=== PATIENT | male | born 1940 | race Caucasian/White ===

== ENCOUNTER → 2018-09-12 09:54 | Day surgery (SDC) | payer MEDICARE, BC, OTHER ==
[~2018-09-12 09:54] MED LIST: Acetaminophen TAB* 325 MG PO PRN; Heparin(*) 1000 UNIT/ML 10 ML VIAL CATH LAB IV ONE; Iohexol 350 (CONTRAST) 200 ML MDV IV ONE; Lidocaine 1% INJ* 10 MG/ML 30 ML SDV ONE; Midazolam* 1 MG/ML 5 ML VIAL (5 MG) ONE; NS 0.9% 1000 ML** 1,000 ML IV SCH; VERAPAMIL 2.5 MG/ML 2 ML VIAL ** 5 mg/2 ml ONE; fentaNYL* 50 MCG/ML 2 ML VIAL (100 MCG VIAL) ONE; nitroGLYCERIN DRIP* 25,000 MCG/250 ML BTL ONE
[2018-09-12 16:06] VITALS: BP 114/57
--- NOTE | 2018-09-13 03:14 | CATH ---
CC: Dr. Tim Miguel; Dr. Gab Patel * CARDIAC CATHETERIZATION REPORT: DATE OF SERVICE: 09/12/18 - [facility] CATH PROCEDURE: Cardiac catheterization including coronary angiography. INDICATION: Aortic stenosis, history of coronary artery disease. The patient is a 78-year-old gentleman with a history of coronary artery disease , history of stenting to his LAD in 2014, who has been having progressive shortness of breath. Echocardiogram showed severe aortic stenosis. Cardiac catheterization was recommended for evaluation. DESCRIPTION OF PROCEDURE: The patient was brought to the cardiac catheterization lab in a fasting state. Informed consent had been obtained prior to the procedure. All labs were reviewed. The patient was placed supine on the catheterization table. His radial area on his right side was prepped and draped in the usual fashion. 1% lidocaine was used for local anesthesia. The radial artery was entered via Seldinger technique and a guidewire was placed. Over the guidewire, a 6-Ecuadorean hydrophilic sheath was placed. Through the sheath, an infusion of verapamil, nitroglycerin, and heparin was infused. The patient underwent coronary angiography using a 6-Ecuadorean AR1 catheter to engage the right coronary artery. Multiple attempts were made to engage the left main artery, but because of severe tortuosity in the innominate artery and in the aortic root, it was difficult to selectively engage the left main artery. At that time, the decision was to switch to the femoral approach. His right femoral artery was prepped and draped in the usual fashion. 1% lidocaine was used for local anesthesia. The femoral artery was entered via Seldinger technique and a guidewire was placed. Over the guidewire, a 6-Ecuadorean sheath and introducer was placed. The patient underwent coronary angiography using a 6 -Ecuadorean JL4 catheter. At the end of the procedure, all sheaths and catheters were removed from the radial area, an angiogram of the femoral artery demonstrated a normal position, and a Mynx closure device was deployed. The patient tolerated the procedure well with no complications. A total of or 95 cc of Omnipaque dye was used. A total of 13 minutes of fluoro time was used. FINDINGS: Central aortic blood pressure 116/64 with a mean of 87. Right coronary artery: The RCA was a large dominant vessel, gave off the PDA and 2 posterolateral branches. There was mild calcification of the proximal vessel. There was no significant stenosis of the remainder of the right coronary artery. Left main artery: The left main was normal in size that bifurcated into the LAD and circumflex. There was no evidence of stenosis. Left anterior descending artery: The LAD was normal in size. It gave off 2 diagonal vessels. The very proximal portion of the left anterior descending had heavy calcification. There was an eccentric plaque of about 25% or 30% that was heavily calcified in the very proximal portion of the LAD. There was a stent in the mid portion of his LAD which showed minimal restenosis. The remainder of the LAD and diagonal vessels were without disease. Left circumflex artery: The circumflex artery was normal in size. It gave off 2 obtuse marginal branches. There was no evidence of stenosis. IMPRESSION: 1. Heavy calcification of the proximal left anterior descending with an eccentric 30% heavy calcified stenosis. 2. Stent to the left anterior descending is open and patent. 3. No significant disease in the left anterior descending, left circumflex, and the right coronary artery. 4. Mynx closure device to the right femoral artery. RECOMMENDATION: The patient will undergo evaluation for aortic valve replacement. [id number] #: [id number] HERNANDEZ
== END | disposition home or self-care (01) ==
LOC: CHICATH 09:54
PROVIDERS: ATTEND Specialist
DX: I35.0 Nonrheumatic aortic (valve) stenosis (principal); R07.9 Chest pain, unspecified; I25.10 Atherosclerotic heart disease of native coronary artery without angina pectoris; I25.84 Coronary atherosclerosis due to calcified coronary lesion; R06.02 Shortness of breath; Z95.5 Presence of coronary angioplasty implant and graft; I10 Essential (primary) hypertension; E11.9 Type 2 diabetes mellitus without complications; Z79.84 Long term (current) use of oral hypoglycemic drugs; K21.9 Gastro-esophageal reflux disease without esophagitis; Z87.891 Personal history of nicotine dependence
CPT/HCPCS: 93454; 99156; 99157; C1760; C1769; C1887; J1644; J2250; J3010

== ENCOUNTER 2019-02-09 07:43 | Observation (INO) | payer MEDICARE, BC, OTHER ==
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
[2019-02-09 08:19] LABS: ABS Basophils 0.1 10^3/ul (0-0.2); ABS Eosinophils 0.1 10^3/ul (0-0.6); ABS Lymphocytes 1.7 10^3/ul (1.0-4.8); ABS Monocytes 1.1 10^3/ul (0-0.8); ABS Neutrophils 5.8 10^3/ul (1.5-7.7); Eosinophil % 1.1 %; Hematocrit 39 % (42-52); Hemoglobin 12.6 g/dL (14.0-18.0); Lymphocyte % 19.1 %; Mean Corpuscular HGB Conc 33 g/dL (31-36); Mean Corpuscular Hemoglobin 24 pg (27-31); Mean Corpuscular Volume 75 fL (80-94); Mean Platelet Volume 7.8 fL (7.4-10.4); Platelet Count 171 10^3/uL (150-450); Red Blood Count 5.16 10^6 /uL (4.18-5.48); Red Cell Distribution Width 20 % (10-15); White Blood Count 8.7 10^3/uL (3.5-10.8)
[2019-02-09 08:22] LABS: INR 2.73 (0.82-1.09)
[2019-02-09] MEDS ORDERED: Aspirin 81 mg CHEW TAB* 81 MG TAB.CHEW PO ONE (08:25)
[2019-02-09] MEDS ORDERED: Nitroglycerin TAB 0.4 MG* 0.4 MG TAB SL ONE (08:26)
[2019-02-09] MEDS ORDERED: Nitroglycerin TAB 0.4 MG* 0.4 MG TAB SL PRN ×2 (08:31→11:03)
[2019-02-09 08:37] LABS: Albumin 4.1 g/dL (3.2-5.2); Albumin/Globulin Ratio 1.5 (1-3); BUN/Creatinine Ratio 10.8 (8-20); Calcium 8.9 mg/dL (8.6-10.3); EGFR African American 77.9 (>60); EGFR Non-African American 64.4 (>60); Globulin 2.8 g/dL (2-4); Total Bilirubin 0.8 mg/dL (0.2-1.0); Total Protein 6.9 g/dL (6.4-8.9); Troponin I 0.01 ng/mL (<0.04)
[2019-02-09] MEDS ORDERED: Senna TAB 8.6 mg* TAB PO PRN (10:49)
[2019-02-09] MEDS ORDERED: Acetaminophen TAB* 325 MG PO PRN (10:49)
[2019-02-09] MEDS ORDERED: Ondansetron INJ* 2 MG/ML VIAL IV PRN (10:49)
[2019-02-09] MEDS ORDERED: Al Hydrox/Mg Hydrox/Simet LIQ* 30 ML UDC PO PRN (10:49)
[2019-02-09] MEDS ORDERED: Docusate CAP* 100 MG PO PRN (10:55)
[2019-02-09] MEDS ORDERED: Enoxaparin(*) 40 MG/0.4 ML SYR SUBCUT SCH (11:00)
[2019-02-09] MEDS ORDERED: Ferrous Sulfate TAB* 325 MG PO SCH (11:00)
[2019-02-09] MEDS ORDERED: HYDROcodone/ACETAMIN 5-325 MG* 1 TAB PO PRN (11:03)
[2019-02-09] MEDS: glipiZIDE TAB* 5 MG PO SCH ×2 (13:45→17:22)
[2019-02-09] MEDS ORDERED: Dextrose 50% Syringe 50 ML* 25 GM/50 ML SYRINGE IV PUSH PRN (15:05)
[2019-02-09] MEDS ORDERED: Warfarin TAB(*) 6 MG PO SCH (17:00)
[2019-02-09] MEDS: Insulin LISPRO* 1 UNITS UNIT SUBCUT SCH ×2 (17:22→20:24)
--- NOTE | 2019-02-09 18:13 | HP ---
CC: Dr. Baljeet Cervantes* ADMISSION HISTORY AND PHYSICAL: DATE OF ADMISSION: 02/09/19 PROVIDER: NIK Rodriguez PRIMARY CARE PHYSICIAN: Dr. Baljeet Cervantes. ATTENDING PHYSICIAN WHILE IN THE HOSPITAL: Dr. Rhoda Gloria* (dictated by NIK Rodriguez). CHIEF COMPLAINT: Chest pain. HISTORY OF PRESENT ILLNESS: Bartolo Dawn is a 78-year-old white male with past medical history significant for biologic aortic valve replacement; coronary artery disease, status post PCI; atrial fibrillation; iron deficiency anemia; type 2 diabetes; diastolic CHF, who presented to emergency department complaining of chest pain. The patient has been completing cardiac rehab for the last several weeks. Yesterday, he went to cardiac rehab and had good exercise including arm bike. Several hours after he finished rehab, he was feeling well until he started having right-sided chest pain, which he initially thought it was musculoskeletal due to the exercise arm bike he performed. Later in the evening yesterday, his right sided chest pain began to radiate to his central chest. He felt the pain was 3/10 and felt like he "had been kicked in the chest several hours ago." The patient then went to bed, when he woke up this morning he was still having right sided and central chest pain but now the pain has travelled down his right arm and was in his arm, upper back as well. The patient had no associated shortness of breath or palpitations. The patient has not been coughing; he did notice a cough once this morning with the need to clear his throat, which is now resolved. He has not been feeling fevers or chills. He denies abdominal pain, nausea, vomiting, headache or visual changes. He has been intermittently constipated for several weeks and at this point, he still has some issues with constipation at times. At the time of my evaluation, he feels his chest pain has resolved. Given his significant cardiac history, the hospitalists were asked to evaluate the patient for admission. PAST MEDICAL HISTORY: 1. Atrial fibrillation, which has been persistent, status post aortic valve replacement. 2. Iron deficiency anemia. 3. Hypertension. 4. Claudication. 5. Coronary artery disease, status post stent to LAD. 6. Diabetes mellitus type 2. 7. GERD. 8. Glaucoma of the left eye. 9. Diastolic CHF grade 1 10. Nephrolithiasis 11. History of gastric ulcer. PAST SURGICAL HISTORY: 1. Biologic aortic valve replacement in September 2018 2. Multiple left eye surgeries. 3. History of renal stents placed, which have since been moved. HOME MEDICATIONS: 1. Ferrous sulfate 325 mg p.o. every other day. 2. Coumadin 6 mg every day of the week except Wednesday; 3 mg on Mondays. 3. Diltiazem 240 mg p.o. daily. 4. Glipizide 5 mg p.o. t.i.d. 5. Sitagliptin 50 mg p.o. b.i.d. 6. Simvastatin 20 mg p.o. at bedtime. 7. Omeprazole 20 mg p.o. daily. 8. Nitroglycerin 0.4 mg sublingual q.5 minutes p.r.n. angina. 9. Multivitamin 1 tab p.o. daily. 10. Metoprolol succinate 25 mg p.o. daily. 11. Melatonin 10 mg p.o. at bedtime. 12. Hydrocodone/acetaminophen 5 mg/325 mg 1 tab p.o. q.6 hours p.r.n. moderate pain. 13. Evening [place] oil 500 mg p.o. daily. 14. Enalapril 5 mg p.o. daily. 15. Docusate 100 mg p.o. daily p.r.n. constipation. 16. Cannabidiol extract 2 drops p.o. q.p.m. 17. Aspirin 81 mg p.o. daily. 18. Amoxicillin 2000 mg p.o. once p.r.n. dental work. ALLERGIES: Unknown unknown reaction to MORPHINE, GI upset to NSAIDs. FAMILY HISTORY: Father at age 70 due to complications related to CHF. Mother at age 59 due to lung cancer. SOCIAL HISTORY: The patient lives in [place] with his . He is a retired teacher. He quit smoking in 1994 and smokes for approximately 25 years at about a pack per day. The patient drinks 2 beers per month and denies illicit drug use. He would like his , Melanie Dawn, to be his surrogate medical decision maker should he need one. Her phone number is [phone]. REVIEW OF SYSTEMS: An 11-point review of systems was completed and all pertinent positives and negatives are above in the HPI and all other systems are negative. PHYSICAL EXAMINATION GENERAL: Elderly white male, lying upright in hospital bed, appearing comfortable, in no acute distress with at bedside. HEENT: Head: Normocephalic, atraumatic. Eyes: PERRL. Sclerae anicteric. ENT: Mucous membranes moist. NECK: Supple without JVD. LUNGS: Lungs are clear to auscultation throughout CARDIO: Irregularly irregular rhythm consistent with atrial fibrillation. No murmurs, rubs, or gallops appreciated. Reproducible chest pain with palpation in the second and third intercostal space in the right side at the sternal border. ABDOMEN: Soft, nontender, nondistended without hepatosplenomegaly. EXTREMITIES: No clubbing, cyanosis or edema. NEUROLOGIC: The patient is alert and oriented x3. No focal deficits. Able to follow commands and move all extremities. SKIN: There is a bullous with 1 cm diameter on the right wade. DIAGNOSTIC STUDIES/LAB DATA: White blood cell count 8.7, hemoglobin 12.6, hematocrit 39, platelet count 171. Sodium 139, potassium 4, chloride 106, carbon dioxide 28, anion gap 5, BUN 12, creatinine 1.11, glucose 154. INR 2.73. LFTs are unremarkable. BNP is 233. Troponin 0.01 x2 measurements. EKG: Atrial fibrillation, rate is 98 beats per minute, axis shift to the left, no ST depressions or elevations. There is some T-wave flattening isolated to lead III which is consistent with previous EKG. Chest x-ray on 02/09/19, radiologist's impression: Reticulonodular opacification, predominant along the lung bases and right middle lung zone. This is concerning for infiltrative process. Mild interstitial pulmonary edema is likely. Per my read, I am only suspicious of pulmonary edema, they do not have concern for infiltrate at this time. ASSESSMENT AND PLAN: Bartolo Dawn is a 78-year-old while male with past medical history significant for coronary disease, status post stent to LAD; claudication; hypertension; atrial fibrillation, and biologic aortic valve replacement, who presents to the emergency department complaining of chest pain. The patient will be admitted OBV for. 1. Chest pain. Given the patient's significant cardiac history, I will order a stress test. Troponins have been negative thus far and EKGs have been without changes and we will follow this to a third troponin, which will not be repeated afterwards if is also negative. It is likely a musculoskeletal pain as the patient's chest pain is reproducible on exam and the patient has been having significant amount of exercise and cardiac rehab. The patient will be admitted to telemetry bed and monitored. I will check a TSH level as well. 2. Abnormal chest x-ray. Radiologist expressed concern for infiltrative process and I do not suspect infection at this time. The patient has no leukocytosis, no clinical signs of pneumonia, and his lungs are clear. The patient has been afebrile. No intervention at this time 3. History of coronary artery disease. The patient received total of 325 mg of aspirin today. We will continue his home aspirin, IDA inhibitor, metoprolol , p.r.n. nitroglycerin and simvastatin 4. Atrial fibrillation. The patient is rate controlled at this time. I will continue his metoprolol, Coumadin and diltiazem. He will be on telemetry. His INR is therapeutic at this time and I will repeat INR tomorrow. 5. Diabetes. I will continue the patient's home oral diabetes medications, sliding scale lispro has been ordered as well as fingerstick 60 a.c. and h.s. Carbohydrate consistent diet. 6. Iron deficiency anemia. We will continue the patient's iron supplement every other day as he takes at home. 7. FEN. Heart healthy and carbohydrate consistent diet. Electrolytes are within normal limits. 8. Code status. The patient is full code. 9. DVT prophylaxis. The patient is therapeutic on Coumadin and I will continue this. TIME SPENT: Approximately 45 minutes was spent on this admission, approximately half of the time was spent at bedtime. This case has been reviewed by my attending, Rhoda Gloria and she agrees with plan of care. NIK RODRIGUEZ [id number]/[facility] #: [id number] MTDD
[2019-02-09] MEDS ORDERED: SIMVASTATIN 20 MG PO SCH (21:00)
[2019-02-09] MEDS ORDERED: Melatonin 3 MG TAB PO SCH (21:00)
[2019-02-09] MEDS: CMC: SitaGLIPtin (NF) 25 MG TAB PO SCH (21:25)
[2019-02-10 06:59] LABS: ABS Basophils 0.1 10^3/ul (0-0.2); ABS Eosinophils 0.2 10^3/ul (0-0.6); ABS Lymphocytes 2.6 10^3/ul (1.0-4.8); Eosinophil % 2.2 %; Hematocrit 38 % (42-52); Hemoglobin 12.6 g/dL (14.0-18.0); Lymphocyte % 33.6 %; Mean Corpuscular HGB Conc 33 g/dL (31-36); Mean Corpuscular Hemoglobin 24 pg (27-31); Mean Corpuscular Volume 75 fL (80-94); Mean Platelet Volume 8.3 fL (7.4-10.4); Nucleated Red Blood Cells % 0.1; Platelet Count 160 10^3/uL (150-450); Red Blood Count 5.14 10^6 /uL (4.18-5.48); Red Cell Distribution Width 20 % (10-15); White Blood Count 7.8 10^3/uL (3.5-10.8)
[2019-02-10 07:06] LABS: INR 2.78 (0.82-1.09)
[2019-02-10 07:19] LABS: EGFR African American 87.9 (>60); EGFR Non-African American 72.6 (>60); Potassium 4.1 mmol/L (3.5-5.0)
[2019-02-10 07:36] LABS: TSH (Thyroid Stimulating Horm) 0.9 mcIU/mL (0.34-5.60)
--- NOTE | 2019-02-10 08:07 | PN ---
Subjective - Subjective Reason for Note: Discharge Note History: DISCHARGE SUMMARY: I obtained a history from the patient and from NIK Montana's admitting history and physical. He had acute chest pain - this was after using his arms for exercise. He had no associated symptoms - diaphoresis, nausea, palpitations , pre-syncope. The pain has gone. He has had a normal cardiac NM stress test. He is feeling well this morning. He has no chest pain, dyspnea, palpitations. He has had no cough, sputum, fever or chills. He doesn't think he has a respiratory infection. Active Problems: Active Problems Chest pain (Acute) R07.9 Blindness of one eye (Chronic) H54.40 Coronary artery disease (Chronic) I25.10 Diabetes mellitus type 2 (Chronic) E11.9 Essential hypertension (Chronic) I10 Glaucoma (Chronic) H40.9 Hypercholesterolemia (Chronic) E78.0 S/P AVR (aortic valve replacement) (Chronic) Z95.2 Stented coronary artery (Chronic) Z95.5 Current Medications: Current Medications Acetaminophen (Tylenol Tab*) 650 mg PO Q4H PRN PRN Reason: MILD PAIN or TEMP > 100.4 Hydrocodone Bitart/Acetaminophen (Dunbar 5-325 Tab*) 1 tab PO Q6HR PRN PRN Reason: PAIN - MODERATE Al Hydrox/Mg Hydrox/Simethicone (Maalox Plus*) 30 ml PO Q6H PRN PRN Reason: INDIGESTION Aspirin (Aspirin Ec Tab*) 81 mg PO DAILY [facility] Dextrose (D50w Syringe 50 Ml*) 12.5 gm IV PUSH .FOR FS < 60 - SS PRN PRN Reason: FS < 60 Diltiazem HCl (Cardizem Cd Cap*) 240 mg PO DAILY [facility] Docusate Sodium (Colace Cap*) 100 mg PO DAILY PRN PRN Reason: CONSTIPATION Enalapril Maleate (Vasotec Tab*) 5 mg PO DAILY [facility] Ferrous Sulfate (Ferrous Sulfate Tab*) 325 mg PO EVERY OTHER DAY [facility] Last Admin: 02/09/19 13:58 Dose: 325 mg Glipizide (Glucotrol Tab*) 5 mg PO TID WITH MEALS [facility] Last Admin: 02/09/19 17:22 Dose: 5 mg Insulin Human Lispro (Humalog*) 0 units SUBCUT ACHS [facility]; Protocol Last Admin: 02/09/19 20:24 Dose: 2 unit Melatonin (Melatonin) 9 mg PO BEDTIME [facility] Last Admin: 02/09/19 20:25 Dose: 9 mg Metoprolol Succinate (Toprol Xl Tab*) 25 mg PO DAILY [facility] Multivitamins/Minerals (Theragran/Minerals Tab*) 1 tab PO DAILY [facility] Nitroglycerin (Nitroglycerin Tab 0.4 Mg*) 0.4 mg SL Q5M PRN PRN Reason: PAIN - CHEST Ondansetron HCl (Zofran Inj*) 4 mg IV Q4H PRN PRN Reason: NAUSEA/VOMITING Pantoprazole Sodium (Protonix Tab*) 40 mg PO DAILY [facility] Pharmacy Profile Note (Coumadin Daily Reminder*) 0 note FOLLOW UP 1700 [facility] Last Admin: 02/09/19 17:22 Dose: 1 note Senna (Senokot 8.6 Mg Tab*) 1 tab PO BID PRN PRN Reason: CONSTIPATION Simvastatin (Zocor(Nf)) 20 mg PO BEDTIME [facility] Last Admin: 02/09/19 21:25 Dose: 20 mg Sitagliptin Phosphate (Januvia (Nf)) 50 mg PO BID [facility] Last Admin: 02/09/19 21:25 Dose: 50 mg Warfarin Sodium (Coumadin Tab(*)) 3 mg PO Mo@1700 [facility]; Protocol Warfarin Sodium (Coumadin Tab(*)) 6 mg PO SuTuWeThFrSa@1700 [facility] Last Admin: 02/09/19 17:22 Dose: 6 mg Home Medications: Home Medications Medication Instructions Recorded Confirmed Type Metoprolol Succinate XL TAB* 25 mg PO DAILY 04/24/15 02/09/19 History [Toprol XL TAB*] Simvastatin TAB(NF) [Zocor 20 MG 20 mg PO BEDTIME 04/24/15 02/09/19 History (NF)] Amoxicillin PO (*) [Amoxicillin 2,000 mg PO ONCE PRN 07/17/15 02/09/19 History 500 MG CAP*] Aspirin EC TAB* [Ecotrin EC Low 81 mg PO DAILY 07/17/15 02/09/19 History Dose 81 MG*] Docusate CAP* [Colace Cap*] 100 mg PO DAILY PRN 07/17/15 02/09/19 History Evening [place] Oil [Evening 500 mg PO DAILY 07/17/15 02/09/19 History [place] Oil 500 mg] Melatonin 10 mg PO BEDTIME 07/17/15 02/09/19 History Multivitamins/Minerals TAB* 1 tab PO DAILY 07/17/15 02/09/19 History [Theragran/minerals TAB*] Omeprazole CAP (NF) [Prilosec CAP* 20 mg PO DAILY 07/17/15 02/09/19 History 20 MG] glipiZIDE TAB* [Glucotrol TAB*] 5 mg PO TID 07/17/15 02/09/19 History Nitroglycerin TAB 0.4 MG* 0.4 mg SL Q5M PRN 09/09/18 02/09/19 History Sitagliptin (NF) [Januvia (NF)] 50 mg PO BID 09/09/18 02/09/19 History Cannabidiol (Cbd) Extract 2 drop PO QPM 09/12/18 02/09/19 History [Epidiolex] Enalapril TAB* [Vasotec TAB*] 5 mg PO DAILY 09/12/18 02/09/19 History Ferrous Sulfate TAB* 325 mg PO EVERY OTHER DAY 02/09/19 02/09/19 History Hydrocodone-Acetamin 5-325 mg 1 tab PO Q6HR PRN 02/09/19 02/09/19 History Warfarin Sodium 3 mg PO DAILY 02/09/19 02/09/19 History dilTIAZem HCl [Cartia Xt] 240 mg PO DAILY 02/09/19 02/09/19 History Allergies: Allergies Allergy/AdvReac Type Severity Reaction Status Date / Time morphine Allergy Unknown Verified 02/09/19 07:54 Reaction Details NSAIDS (Non-Steroidal Allergy GI Upset Verified 02/09/19 07:54 Anti-Inflamma Objective - Vital Signs Vital Signs: Vital Signs 02/09/19 02/09/19 02/09/19 08:06 08:15 08:28 Temperature Pulse Rate 90 92 92 Respiratory 19 23 27 Rate Blood Pressure 142/73 142/80 (mmHg) O2 Sat by Pulse 97 97 95 Oximetry 02/09/19 02/09/19 02/09/19 08:58 09:00 09:28 Temperature Pulse Rate 87 84 85 Respiratory 23 24 21 Rate Blood Pressure 126/70 127/70 (mmHg) O2 Sat by Pulse 94 93 96 Oximetry 02/09/19 02/09/19 02/09/19 09:58 10:00 10:28 Temperature Pulse Rate 73 83 90 Respiratory 15 15 30 Rate Blood Pressure 125/66 139/76 (mmHg) O2 Sat by Pulse 96 96 96 Oximetry 02/09/19 02/09/19 02/09/19 10:52 10:53 10:59 Temperature Pulse Rate 90 80 83 Respiratory 31 28 15 Rate Blood Pressure 150/79 132/75 126/81 (mmHg) O2 Sat by Pulse 95 96 96 Oximetry 02/09/19 02/09/19 02/09/19 11:00 12:04 12:47 Temperature 98.2 F 98.0 F Pulse Rate 84 77 84 Respiratory 24 16 16 Rate Blood Pressure 135/61 139/76 (mmHg) O2 Sat by Pulse 95 97 98 Oximetry 02/09/19 02/09/19 02/09/19 15:15 19:10 19:38 Temperature 97.7 F 97.9 F Pulse Rate 79 112 Respiratory 14 18 18 Rate Blood Pressure 126/57 116/52 (mmHg) O2 Sat by Pulse 95 95 Oximetry 02/09/19 02/10/19 23:53 03:09 Temperature 98.3 F 99.1 F Pulse Rate 84 41 Respiratory 18 18 Rate Blood Pressure 136/71 135/56 (mmHg) O2 Sat by Pulse 96 97 Oximetry - Intake and Output Intake and Output: Intake & Output 02/07/19 02/08/19 02/09/19 02/10/19 11:59 11:59 11:59 11:59 Intake Total 290 Balance 290 Weight 195 lb 197 lb 6.4 oz Intake: IV Fluids 50 Oral 240 ADLs: Meal Record Start: 02/09/19 12: 04 Freq: DAILY@0900,1400,1800 Status: Active Protocol: Created 02/09/19 12:04 System (Rec: 02/09/19 12:04 System [email or web address]) Document 02/09/19 18:00 [id number] (Rec: 02/09/19 18:12 [id number]) Intake and Output Start: 02/09/19 07: 53 Freq: Status: Active Protocol: Created 02/09/19 07:53 System (Rec: 02/09/19 07:53 System [id number]) Intake and Output Start: 02/09/19 12: 04 Freq: DAILY@0600,1400,2200 Status: Active Protocol: Created 02/09/19 12:04 System (Rec: 02/09/19 12:04 System [id number]) Document 02/09/19 22:00 [id number] (Rec: 02/09/19 22:11 [id number] [email or web address]) Document 02/10/19 06:00 [id number] (Rec: 02/10/19 06:08 [id number]) - Physical Exam General Physical Exam Comment: Warm and well perfused, he is looking well General: No Cyanosis, No Anemia, No Jaundice, No Clubbing Lungs and Chest: Yes: Chest Expansion Full, Chest Expansion Symetrica, Percussion Note Resonant, Vessicular Breath Sounds. No: Crackles, Wheezes Heart Rate and Rhythm: Irregular Additional Cardiovascular: Yes: Normal Heart Sounds. No: Heart Murmur, Pedal Edema Abdominal Exam: Yes: Soft, Bowel Sounds Present. No: Distention, Abdominal Tenderness Results - Results Lab Results: Laboratory Results - last 24 hr 02/09/19 02/09/19 02/09/19 08:08 08:08 08:08 WBC 8.7 RBC 5.16 Hgb 12.6 L Hct 39 L MCV 75 L MCH 24 L MCHC 33 RDW 20 H Plt Count 171 MPV 7.8 Neut % (Auto) 66.9 Lymph % (Auto) 19.1 [place] % (Auto) 12.1 Eos % (Auto) 1.1 Baso % (Auto) 0.8 Absolute Neuts (auto) 5.8 Absolute Lymphs (auto) 1.7 Absolute Monos (auto) 1.1 H Absolute Eos (auto) 0.1 Absolute Basos (auto) 0.1 Absolute Nucleated RBC 0.0 Nucleated RBC % 0.0 INR (Anticoag Therapy) 2.73 H APTT Sodium 139 Potassium 4.0 Chloride 106 Carbon Dioxide 28 Anion Gap 5 BUN 12 Creatinine 1.11 Est GFR ( Amer) 77.9 Est GFR (Non-Af Amer) 64.4 BUN/Creatinine Ratio 10.8 Glucose 154 H POC Glucose (mg/dL) Calcium 8.9 Total Bilirubin 0.80 AST 12 L ALT 13 Alkaline Phosphatase 90 Troponin I 0.01 B-Natriuretic Peptide Total Protein 6.9 Albumin 4.1 Globulin 2.8 Albumin/Globulin Ratio 1.5 TSH 02/09/19 02/09/19 02/09/19 08:08 08:08 10:54 WBC RBC Hgb Hct MCV MCH MCHC RDW Plt Count MPV Neut % (Auto) Lymph % (Auto) [place] % (Auto) Eos % (Auto) Baso % (Auto) Absolute Neuts (auto) Absolute Lymphs (auto) Absolute Monos (auto) Absolute Eos (auto) Absolute Basos (auto) Absolute Nucleated RBC Nucleated RBC % INR (Anticoag Therapy) APTT 58.8 H Sodium Potassium Chloride Carbon Dioxide Anion Gap BUN Creatinine Est GFR ( Amer) Est GFR (Non-Af Amer) BUN/Creatinine Ratio Glucose POC Glucose (mg/dL) Calcium Total Bilirubin AST ALT Alkaline Phosphatase Troponin I 0.01 B-Natriuretic Peptide 233 H Total Protein Albumin Globulin Albumin/Globulin Ratio [facility] 02/09/19 02/09/19 02/09/19 15:27 16:26 19:32 WBC RBC Hgb Hct MCV MCH MCHC RDW Plt Count MPV Neut % (Auto) Lymph % (Auto) [place] % (Auto) Eos % (Auto) Baso % (Auto) Absolute Neuts (auto) Absolute Lymphs (auto) Absolute Monos (auto) Absolute Eos (auto) Absolute Basos (auto) Absolute Nucleated RBC Nucleated RBC % INR (Anticoag Therapy) APTT Sodium Potassium Chloride Carbon Dioxide Anion Gap BUN Creatinine Est GFR ( Amer) Est GFR (Non-Af Amer) BUN/Creatinine Ratio Glucose POC Glucose (mg/dL) 134 H 181 H Calcium Total Bilirubin AST ALT Alkaline Phosphatase Troponin I 0.01 B-Natriuretic Peptide Total Protein Albumin Globulin Albumin/Globulin Ratio [facility] 02/10/19 02/10/19 02/10/19 06:00 06:00 06:00 WBC 7.8 RBC 5.14 Hgb 12.6 L Hct 38 L MCV 75 L MCH 24 L MCHC 33 RDW 20 H Plt Count 160 MPV 8.3 Neut % (Auto) 51.1 Lymph % (Auto) 33.6 [place] % (Auto) 12.4 Eos % (Auto) 2.2 Baso % (Auto) 0.7 Absolute Neuts (auto) 4.0 Absolute Lymphs (auto) 2.6 Absolute Monos (auto) 1.0 H Absolute Eos (auto) 0.2 Absolute Basos (auto) 0.1 Absolute Nucleated RBC 0.0 Nucleated RBC % 0.1 INR (Anticoag Therapy) 2.78 H APTT Sodium 139 Potassium 4.1 Chloride 107 Carbon Dioxide 24 Anion Gap 8 BUN 13 Creatinine 1.00 Est GFR ( Amer) 87.9 Est GFR (Non-Af Amer) 72.6 BUN/Creatinine Ratio 13.0 Glucose 107 H POC Glucose (mg/dL) Calcium 9.0 Total Bilirubin AST ALT Alkaline Phosphatase Troponin I B-Natriuretic Peptide Total Protein Albumin Globulin Albumin/Globulin Ratio TSH 0.90 Radiology Results: Patient Name: ABBY HICKMAN Medical Record#: [id number] Ordering Physician: Mauricio Bernard MD Acct.#: [id number] : 1940 Age: 78 Sex: M Location: EMERGENCY DEPARTMENT Exam Date: 02/09/19754 ADM Status: REG ER Order Information: CHEST AP OR PORT Accession Number: [id number] CPT: 11460 INDICATION: Chest pain COMPARISON: December 31, [address] TECHNIQUE: A portable view of the chest was obtained. FINDINGS: Overlying support devices obscure the [id number]. Reticulonodular opacifications predominantly at the lung bases and right middle lung zone. Ramo B lines are present. There is no pleural effusion. The enlarged cardiomediastinal silhouette is grossly unchanged status post midline sternotomy. The upper abdominal contents are normal. Osseous structures are unremarkable. IMPRESSION: 1. Reticulonodular opacification predominates along the lung bases and right middle lung zone. This is concerning for infiltrative process. 2. Mild interstitial pulmonary edema is likely. <Electronically signed by Marshall Tejada MD in [place]> 02/09/19848 Dictated By: Marshall Tejada MD Dictated Date/Time: 02/09/19848 Transcribed Date/Time: 02/09/19842 Copy to: EKG Report: 85 atrial fibrillation QTc 484 QRS axis -33. Q waves inferior leads and poor R- wave progress. No acute ST-T changes Other Results/Reports: Patient Name: ABBY HICKMAN Medical Record#: [id number] Ordering Physician: NIK Gruber Acct.#: [id number] : 1940 Age: 78 Sex: M Location: [address] [place] [address] MEDICAL/TELEMETRY Exam Date: 02/09/19 1048 ADM Status: ADM Gonzalo Order Information: NUCLEAR CARDIAC STRESS TEST Accession Number: [id number] CPT: 40204 Indication: Chest pain, coronary artery disease. Myocardial perfusion scan was performed utilizing 1 day protocol. Rest myocardial perfusion was performed after intravenous injection of 10.2 mCi of technetium 99m tetrofosmin. Treadmill stress study was performed and 25.2 mCi of technetium 99 and tetrofosmin was injected intravenously. The maximum heart rate achieved was 101% of the maximum predicted value. There is homogeneous distribution of the radiotracer throughout the left ventricle. There is a small focal area of photopenia in the anterior wall close to the apex. This appears to partially reverse on the rest images and may represent a small amount of reversible change. Ejection fraction at stress is 60%. Evaluation of wall motion demonstrates no focal wall motion abnormality. IMPRESSION: There is suggestion of a small area of reversible change involving the anterior septal wall close to the apex. ASSESSMENT: Low risk Based on imaging criteria from ACC/AHA 2002 Guideline Update for the Management of Patients With Chronic Stable Angina Table 23. Noninvasive Risk Stratification. Reference. <Electronically signed by Jyoti Lao MD in [place]> 02/09/19 1424 Dictated By: Jyoti Lao MD Dictated Date/Time: 02/09/19 1424 Transcribed Date/Time: 02/09/19 1415 Copy to: CC:Baljeet Cervantes MD; Rhoda Gloria MD; NIK Rodriguez Imaging - [facility] Imaging - [facility] Imaging - [facility] [address] This report is only to be considered final once signed by the Provider(s) as displayed in the "<Electronically Signed by >" field (s). Absence of a signature indicates the report is in a draft status and still needs to be finalized. In the event this document was created by someone other than the signing Provider, the individual initiating the document will be listed in the "Entered by:" or "Dictated by:" chen. 1 of 2 Assessment - Problem List Assessment: Patient Problems Chest pain (Acute) Blindness of one eye (Chronic) Coronary artery disease (Chronic) Diabetes mellitus type 2 (Chronic) Essential hypertension (Chronic) Glaucoma (Chronic) Hypercholesterolemia (Chronic) S/P AVR (aortic valve replacement) (Chronic) Stented coronary artery (Chronic) Plan: Chest pain (Acute) He has a low risk of cardiac ischemia from the NM test. Despite the CXR he has no symptoms or signs suggestive of a chest infection. He has no symptoms of CHF. I think this pain was musculo-skeletal. I will add a CRP to ensure there is no inflammation from an infection - but his % neutrophils are normal. Secondary diagnoses: Blindness of one eye (Chronic) Coronary artery disease (Chronic) Diabetes mellitus type 2 (Chronic) Essential hypertension (Chronic) Glaucoma (Chronic) Hypercholesterolemia (Chronic) S/P AVR (aortic valve replacement) (Chronic) Stented coronary artery (Chronic) I have suggested he holds off the upper body exercises. I have warned him of the symptoms of heart failure and pneumonia. He will follow at my office for a transition of care visit after the weekend ( today Wednesday). I discussed the above with the patient. Condition at discharge: good Disposition: Home
[2019-02-10] MEDS: CMC: SitaGLIPtin (NF) 25 MG TAB PO SCH (08:53)
[2019-02-10] MEDS: glipiZIDE TAB* 5 MG PO SCH (08:53)
[2019-02-10] MEDS: Insulin LISPRO* 1 UNITS UNIT SUBCUT SCH (08:58)
[2019-02-10] MEDS ORDERED: Metoprolol Succinate XL TAB* 25 MG PO SCH (09:00)
[2019-02-10] MEDS ORDERED: Aspirin EC TAB* 81 MG TAB.EC PO SCH (09:00)
[2019-02-10] MEDS ORDERED: Enalapril TAB* 5 MG PO SCH (09:00)
[2019-02-10] MEDS ORDERED: Multivitamins/Minerals TAB PO SCH (09:00)
[2019-02-10] MEDS ORDERED: Pantoprazole TAB * 40 MG TAB PO SCH (09:00)
[2019-02-10] MEDS ORDERED: Diltiazem CD CAP* 240 MG PO SCH (09:00)
[2019-02-10 09:23] VITALS: BP 117/57
[2019-02-13] MEDS ORDERED: Warfarin TAB(*) 3 MG PO SCH (17:00)
== END 2019-02-10 10:36 | disposition home or self-care (01) ==
LOC: ED 07:43 → MEDTELE 10:49
PROVIDERS: ADMIT Internal Medicine; ATTEND Internal Medicine
DX: R07.9 Chest pain, unspecified (principal); I48.91 Unspecified atrial fibrillation; I50.30 Unspecified diastolic (congestive) heart failure; Z95.4 Presence of other heart-valve replacement; I25.2 Old myocardial infarction; H54.40 Blindness, one eye, unspecified eye; I25.10 Atherosclerotic heart disease of native coronary artery without angina pectoris; E11.9 Type 2 diabetes mellitus without complications; I10 Essential (primary) hypertension; H40.9 Unspecified glaucoma; E78.00 Pure hypercholesterolemia, unspecified; Z95.5 Presence of coronary angioplasty implant and graft; D50.9 Iron deficiency anemia, unspecified; K21.9 Gastro-esophageal reflux disease without esophagitis; Z79.899 Other long term (current) drug therapy; Z79.82 Long term (current) use of aspirin; Z87.891 Personal history of nicotine dependence; Z79.01 Long term (current) use of anticoagulants
CPT/HCPCS: 36415; 71045; 78452; 80048; 80053; 83880; 84443; 84484; 85025; 85610; 85730; 93005; 93017; 99284; A9270-GY; A9502; G0378

== ENCOUNTER 2021-02-13 20:25 | Inpatient (IN) ==
[2021-02-13] MEDS ORDERED: HYDROmorphone 1 MG/1 ML SYRINGE IV SLOW PU ONE ×2 (20:42→23:02)
[2021-02-13 21:08] LABS: Hematocrit 50 % (42-52); Hemoglobin 16.8 g/dL (14.0-18.0); Mean Corpuscular HGB Conc 34 g/dL (31-36); Mean Corpuscular Hemoglobin 30 pg (27-31); Mean Corpuscular Volume 88 fL (80-94); Mean Platelet Volume 8.7 fL (7.4-10.4); Platelet Count 143 10^3/uL (150-450); Red Blood Count 5.63 10^6 /uL (4.18-5.48); Red Cell Distribution Width 14 % (10-15); White Blood Count 12.9 10^3/uL (3.5-10.8)
[2021-02-13 21:48] LABS: Calcium 9.6 mg/dL (8.6-10.3); EGFR African American 75.9 (>60); EGFR Non-African American 62.8 (>60); Potassium 4.1 mmol/L (3.5-5.0)
[2021-02-13 22:37] LABS: Activated Partial Thrombo Time 46.5 seconds (26.0-38.0); INR 3.39 (0.86-1.15)
[2021-02-13] MEDS ORDERED: NS 0.9% 500 ml BAG 500 ML IV ONE (23:02)
[2021-02-13] MEDS ORDERED: Ondansetron 4 mg VIAL 2 MG/ML 2 ml VIAL ONE (23:34)
[2021-02-13] MEDS ORDERED: Ondansetron 4 mg VIAL 2 MG/ML 2 ml VIAL IV ONE (23:35)
[2021-02-14] MEDS ORDERED: Ondansetron 4 mg VIAL 2 MG/ML 2 ml VIAL IV PRN (00:26)
[2021-02-14] MEDS ORDERED: Phytonadione Oral Solution 5 MG/25 ML UDC PO ONE (00:40)
[2021-02-14] MEDS ORDERED: Polyethylene Glycol 3350 17 GM PACKET PO PRN (00:56)
[2021-02-14] MEDS ORDERED: Dextrose 50% Syringe 50 ml 25 GM/50 ML SYRINGE IV PUSH PRN ×2 (01:02→05:19)
[2021-02-14] MEDS ORDERED: HYDROmorphone 0.5 MG/0.5 ML SYRINGE IV SLOW PU PRN (02:23)
[2021-02-14 03:02] LABS: Troponin I 0.01 ng/mL (<0.03)
[2021-02-14] MEDS ORDERED: Heparin 5000 UNITS/ML 1 mL VIAL SUBCUT SCH (06:00)
[2021-02-14 06:05] LABS: Hematocrit 50 % (42-52); Hemoglobin 16.8 g/dL (14.0-18.0); Mean Corpuscular HGB Conc 33 g/dL (31-36); Mean Corpuscular Hemoglobin 30 pg (27-31); Mean Corpuscular Volume 89 fL (80-94); Mean Platelet Volume 8.7 fL (7.4-10.4); Platelet Count 133 10^3/uL (150-450); Red Blood Count 5.66 10^6 /uL (4.18-5.48); Red Cell Distribution Width 14 % (10-15); White Blood Count 19.8 10^3/uL (3.5-10.8)
[2021-02-14 06:16] LABS: Calcium 8.9 mg/dL (8.6-10.3); EGFR African American 78.3 (>60); EGFR Non-African American 64.7 (>60)
[2021-02-14 06:20] LABS: INR 3.62 (0.86-1.15)
[2021-02-14] MEDS: EVENING PRIMROSE OIL PO SCH (09:02)
[2021-02-14] MEDS: Aspirin EC 81 mg TAB.EC (enteric coated) PO SCH (13:08)
[2021-02-14 15:15] LABS: Urine Appearance Clear; Urine Bilirubin Negative (Negative); Urine Blood Negative (Negative); Urine Color Amber; Urine Glucose 3+(>=500 mg/dL) (Negative); Urine Ketones Trace (Negative); Urine Nitrite Negative (Negative); Urine Protein Negative (Negative); Urine Specific Gravity 1.025 (1.002-1.030); Urine Urobilinogen Negative (Negative)
[2021-02-15 05:00] LABS: INR 2.39 (0.86-1.15)
[2021-02-15 05:06] LABS: Hematocrit 46 % (42-52); Hemoglobin 15.5 g/dL (14.0-18.0); Mean Corpuscular HGB Conc 33 g/dL (31-36); Mean Corpuscular Hemoglobin 30 pg (27-31); Mean Corpuscular Volume 89 fL (80-94); Red Blood Count 5.22 10^6 /uL (4.18-5.48); Red Cell Distribution Width 14 % (10-15); White Blood Count 13.5 10^3/uL (3.5-10.8)
[2021-02-15 05:07] LABS: ABS Eosinophils 0.3 10^3/ul (0-0.6); ABS Lymphocytes 2.2 10^3/ul (1.0-4.8); ABS Monocytes 0.7 10^3/ul (0-0.8); ABS Neutrophils 10.3 10^3/ul (1.5-7.7); Eosinophil % 2.5 %
[2021-02-15 05:15] LABS: Calcium 8.8 mg/dL (8.6-10.3); EGFR African American 71.5 (>60); EGFR Non-African American 59.1 (>60); Potassium 4.3 mmol/L (3.5-5.0)
[2021-02-15 06:00] LABS: Mean Platelet Volume 8.9 fL (7.4-10.4); Platelet Count 98 10^3/uL (150-450)
[2021-02-15] MEDS: Aspirin EC 81 mg TAB.EC (enteric coated) PO SCH (08:33)
[2021-02-15] MEDS: EVENING PRIMROSE OIL PO SCH (08:37)
[2021-02-15] MEDS: Polyethylene Glycol 3350 17 GM PACKET PO SCH (22:32)
[2021-02-16 05:36] LABS: ABS Basophils 0.1 10^3/ul (0-0.2); ABS Eosinophils 0.4 10^3/ul (0-0.6); ABS Lymphocytes 1.9 10^3/ul (1.0-4.8); ABS Monocytes 1.1 10^3/ul (0-0.8); ABS Neutrophils 9.1 10^3/ul (1.5-7.7); Eosinophil % 3.5 %; Hematocrit 47 % (42-52); Hemoglobin 16.1 g/dL (14.0-18.0); Lymphocyte % 14.7 %; Mean Corpuscular HGB Conc 34 g/dL (31-36); Mean Corpuscular Hemoglobin 30 pg (27-31); Mean Corpuscular Volume 88 fL (80-94); Mean Platelet Volume 8.9 fL (7.4-10.4); Platelet Count 92 10^3/uL (150-450); Red Blood Count 5.37 10^6 /uL (4.18-5.48); Red Cell Distribution Width 14 % (10-15); White Blood Count 12.6 10^3/uL (3.5-10.8)
[2021-02-16 05:37] LABS: INR 1.6 (0.86-1.15)
[2021-02-16 05:57] LABS: Calcium 8.7 mg/dL (8.6-10.3); EGFR African American 89.5 (>60); Potassium 4.2 mmol/L (3.5-5.0)
[2021-02-16] MEDS: Aspirin EC 81 mg TAB.EC (enteric coated) PO SCH (08:45)
[2021-02-16] MEDS: Polyethylene Glycol 3350 17 GM PACKET PO SCH ×2 (08:45→23:07)
[2021-02-16] MEDS ORDERED: Insulin GLARGINE 100 un/ml 10 ml VIAL SUBCUT ONE (12:32)
[2021-02-16] MEDS ORDERED: Insulin GLARGINE 100 un/ml 10 ml VIAL ONE (12:44)
[2021-02-16] MEDS: Heparin 5000 UNITS/ML 1 mL VIAL SUBCUT SCH ×2 (14:29→23:10)
[2021-02-16] MEDS ORDERED: Magnesium Hydroxide LIQ 30 ML UDC PO PRN (16:44)
[2021-02-17 06:12] LABS: ABS Basophils 0.1 10^3/ul (0-0.2); ABS Eosinophils 0.6 10^3/ul (0-0.6); ABS Monocytes 1.2 10^3/ul (0-0.8); ABS Neutrophils 6.5 10^3/ul (1.5-7.7); Hematocrit 48 % (42-52); Hemoglobin 16.3 g/dL (14.0-18.0); Lymphocyte % 19.3 %; Mean Corpuscular HGB Conc 34 g/dL (31-36); Mean Corpuscular Hemoglobin 30 pg (27-31); Mean Corpuscular Volume 88 fL (80-94); Mean Platelet Volume 8.9 fL (7.4-10.4); Platelet Count 95 10^3/uL (150-450); Red Blood Count 5.43 10^6 /uL (4.18-5.48); Red Cell Distribution Width 14 % (10-15); White Blood Count 10.3 10^3/uL (3.5-10.8)
[2021-02-17 06:25] LABS: Calcium 8.8 mg/dL (8.6-10.3); EGFR African American 102.7 (>60); EGFR Non-African American 84.9 (>60); Magnesium 2.1 mg/dL (1.9-2.7); Potassium 3.9 mmol/L (3.5-5.0)
[2021-02-17 06:32] LABS: INR 1.4 (0.86-1.15)
[2021-02-17] MEDS: Polyethylene Glycol 3350 17 GM PACKET PO SCH ×3 (07:49→22:29)
[2021-02-17] MEDS: Aspirin EC 81 mg TAB.EC (enteric coated) PO SCH ×2 (07:49→09:27)
[2021-02-17] MEDS ORDERED: ceFAZolin 2 GM in NS PREMIX 2 GM/100 ML BAG IVPB ONE (08:00)
[2021-02-17] MEDS: Heparin 5000 UNITS/ML 1 mL VIAL SUBCUT SCH ×2 (14:15→22:29)
[2021-02-17 15:04] LABS: INR 1.38 (0.86-1.15)
[2021-02-17] MEDS: Zinc Oxide 40% (TOPICAL) TUBE TOPICAL SCH (16:27)
[2021-02-18] MEDS ORDERED: Lactated Ringers 1000 ml BAG 1,000 ML IV SCH (06:00)
[2021-02-18] MEDS ORDERED: Buffered Lidocaine 1% SYRIN 1 ml INTRADERM ONE ×2 (06:00→07:02)
[2021-02-18 06:34] LABS: ABS Basophils 0.1 10^3/ul (0-0.2); ABS Eosinophils 0.3 10^3/ul (0-0.6); ABS Monocytes 1.3 10^3/ul (0-0.8); Hematocrit 50 % (42-52); Hemoglobin 16.8 g/dL (14.0-18.0); Lymphocyte % 18.9 %; Mean Corpuscular HGB Conc 34 g/dL (31-36); Mean Corpuscular Hemoglobin 30 pg (27-31); Mean Corpuscular Volume 89 fL (80-94); Mean Platelet Volume 9.1 fL (7.4-10.4); Platelet Count 124 10^3/uL (150-450); Red Blood Count 5.63 10^6 /uL (4.18-5.48); Red Cell Distribution Width 14 % (10-15); White Blood Count 10.6 10^3/uL (3.5-10.8)
[2021-02-18] MEDS ORDERED: Propofol 0 MG/0 ML BTL ONE (06:42)
[2021-02-18 06:44] LABS: Calcium 9.1 mg/dL (8.6-10.3); EGFR African American 104.1 (>60); Potassium 4.3 mmol/L (3.5-5.0)
[2021-02-18 06:55] LABS: Activated Partial Thrombo Time 33.7 seconds (26.0-38.0); INR 1.29 (0.86-1.15)
[2021-02-18] MEDS ORDERED: Propofol 10 MG/ML 20 ML BTL ONE (06:56)
[2021-02-18] MEDS ORDERED: Lidocaine 2% PF 5 ML VIAL ONE (06:56)
[2021-02-18] MEDS ORDERED: Midazolam 2 mg/2 ml VIAL 1 mg/ml 2 ml VIAL (2 mg) ONE (06:59)
[2021-02-18] MEDS ORDERED: fentaNYL 250 mcg/5 ml 50 MCG/ML 5 ml VIAL (250 MCG) ONE (06:59)
[2021-02-18] MEDS ORDERED: Rocuronium 50 mg VIAL 10 mg/ml 5 ml VIAL (50 mg) ONE ×3 (06:59→09:20)
[2021-02-18] MEDS ORDERED: ceFAZolin 2 GM in NS PREMIX 2 GM/100 ML BAG IVPB ONE (07:08)
[2021-02-18] MEDS: Aspirin EC 81 mg TAB.EC (enteric coated) PO SCH (07:23)
[2021-02-18] MEDS: Zinc Oxide 40% (TOPICAL) TUBE TOPICAL SCH (07:23)
[2021-02-18] MEDS: Polyethylene Glycol 3350 17 GM PACKET PO SCH ×2 (07:23→23:04)
[2021-02-18] MEDS ORDERED: ROPIVACAINE 5 MG/ML 30 ML BTL (0.5%) ONE (07:26)
[2021-02-18] MEDS ORDERED: Metoprolol Tartrate 5 mg VIAL 5 ml VIAL (1 mg/ml) ONE ×2 (08:21→13:34)
[2021-02-18] MEDS ORDERED: HYDROmorphone 1 MG/1 ML SYRINGE ONE (08:33)
[2021-02-18] MEDS ORDERED: Ketamine HCL 50 mg/ml 10 ml VIAL (500 MG) ONE (08:57)
[2021-02-18] MEDS ORDERED: Ondansetron 4 mg VIAL 2 MG/ML 2 ml VIAL IV PRN (10:47)
[2021-02-18] MEDS ORDERED: Naloxone 0.4 mg VIAL 0.4 mg/ml 1 ml VIAL IV PRN (10:47)
[2021-02-18] MEDS ORDERED: Metoclopramide 5 MG/ML VIAL (10 mg) IV PRN (10:47)
[2021-02-18] MEDS ORDERED: fentaNYL 100 mcg/2 ml 50 MCG/ML VIAL IV PRN (10:47)
[2021-02-18] MEDS ORDERED: HYDROmorphone 1 MG/1 ML SYRINGE IV PRN (10:47)
[2021-02-18] MEDS ORDERED: Heparin 5000 UNITS/ML 1 mL VIAL IV SCH (11:00)
[2021-02-18] MEDS ORDERED: Heparin DRIP 25,000 UNITS BAG 25,000 UNITS/500 ML BAG IV SCH (11:00)
[2021-02-18] MEDS ORDERED: Dexamethasone IV 4 MG/ML VIAL 1 ml VIAL ONE (11:41)
[2021-02-18] MEDS ORDERED: Ondansetron 4 mg VIAL 2 MG/ML 2 ml VIAL ONE (11:41)
[2021-02-18] MEDS ORDERED: fentaNYL 100 mcg/2 ml 50 MCG/ML VIAL ONE (11:47)
[2021-02-18 12:23] LABS: ABS Lymphocytes 1.2 10^3/ul (1.0-4.8); ABS Monocytes 0.5 10^3/ul (0-0.8); ABS Neutrophils 10.6 10^3/ul (1.5-7.7); Eosinophil % 0.4 %; Hematocrit 47 % (42-52); Hemoglobin 15.9 g/dL (14.0-18.0); Lymphocyte % 9.6 %; Mean Corpuscular HGB Conc 34 g/dL (31-36); Mean Corpuscular Hemoglobin 30 pg (27-31); Mean Corpuscular Volume 90 fL (80-94); Mean Platelet Volume 9.4 fL (7.4-10.4); Nucleated Red Blood Cells % 0.1; Platelet Count 132 10^3/uL (150-450); Red Blood Count 5.27 10^6 /uL (4.18-5.48); Red Cell Distribution Width 14 % (10-15); White Blood Count 12.5 10^3/uL (3.5-10.8)
[2021-02-18 12:34] LABS: EGFR African American 87.4 (>60); EGFR Non-African American 72.3 (>60)
[2021-02-18] MEDS ORDERED: Metoprolol Tartrate 5 mg VIAL 5 ml VIAL (1 mg/ml) IV ONE (13:39)
[2021-02-18] MEDS ORDERED: Enoxaparin 100 MG/ML SYR SUBCUT SCH (14:00)
[2021-02-18] MEDS: ceFAZolin 1 GM (AddVan) IVPB SCH ×2 (16:18→23:56)
[2021-02-18] MEDS: Warfarin DAILY REMINDER **NOTE FOLLOW UP SCH (17:42)
[2021-02-18] MEDS ORDERED: Warfarin per PHARMACY **NOTE FOLLOW UP SCH (18:00)
[2021-02-18] MEDS: Enoxaparin 100 MG/ML SYR SUBCUT SCH (19:42)
[2021-02-18] MEDS ORDERED: Insulin GLARGINE 100 un/ml 10 ml VIAL SUBCUT SCH (21:00)
[2021-02-19 06:45] LABS: Hematocrit 41 % (42-52); Mean Corpuscular HGB Conc 34 g/dL (31-36); Mean Corpuscular Hemoglobin 30 pg (27-31); Mean Corpuscular Volume 88 fL (80-94); Mean Platelet Volume 9.2 fL (7.4-10.4); Platelet Count 125 10^3/uL (150-450); Red Blood Count 4.68 10^6 /uL (4.18-5.48); Red Cell Distribution Width 14 % (10-15)
[2021-02-19 06:47] LABS: INR 1.4 (0.86-1.15)
[2021-02-19 07:00] LABS: Albumin 3.2 g/dL (3.2-5.2); Albumin/Globulin Ratio 1.2 (1-3); Calcium 8.6 mg/dL (8.6-10.3); EGFR African American 104.1 (>60); Globulin 2.7 g/dL (2-4); Potassium 4.8 mmol/L (3.5-5.0); Total Bilirubin 1.1 mg/dL (0.2-1.0); Total Protein 5.9 g/dL (6.4-8.9)
[2021-02-19] MEDS: ceFAZolin 1 GM (AddVan) IVPB SCH (08:11)
[2021-02-19] MEDS: Polyethylene Glycol 3350 17 GM PACKET PO SCH (08:14)
[2021-02-19] MEDS: Aspirin EC 81 mg TAB.EC (enteric coated) PO SCH (08:14)
[2021-02-19] MEDS: Zinc Oxide 40% (TOPICAL) TUBE TOPICAL SCH (08:14)
[2021-02-19] MEDS: Enoxaparin 100 MG/ML SYR SUBCUT SCH (08:20)
[2021-02-19 09:01] LABS: ABS Lymphocytes 1.6 10^3/ul (1.0-4.8); ABS Monocytes 1.9 10^3/ul (0-0.8); ABS Neutrophils 10.4 10^3/ul (1.5-7.7); Lymphocyte % 11.5 %
[2021-02-19] MEDS ORDERED: NS 0.9% 1000 ml BAG 1,000 ML IV SCH (10:00)
[2021-02-19 13:07] LABS: Glucose Confirmatory 420 mg/dL (70-100)
[2021-02-19] MEDS: Warfarin DAILY REMINDER **NOTE FOLLOW UP SCH (17:36)
[2021-02-19] MEDS ORDERED: Insulin GLARGINE 100 un/ml 10 ml VIAL SUBCUT SCH (21:00)
[2021-02-20] MEDS: Enoxaparin 100 MG/ML SYR SUBCUT SCH ×2 (00:18→08:26)
[2021-02-20] MEDS: Polyethylene Glycol 3350 17 GM PACKET PO SCH ×2 (00:20→08:26)
[2021-02-20 06:38] LABS: Calcium 8.4 mg/dL (8.6-10.3); EGFR African American 118.2 (>60); EGFR Non-African American 97.7 (>60); Potassium 4.3 mmol/L (3.5-5.0)
[2021-02-20 06:40] LABS: INR 1.65 (0.86-1.15)
[2021-02-20 07:33] VITALS: BP 126/74
[2021-02-20] MEDS: Aspirin EC 81 mg TAB.EC (enteric coated) PO SCH (08:26)
[2021-02-20 08:36] LABS: Hematocrit 38 % (42-52); Hemoglobin 12.4 g/dL (14.0-18.0); Mean Corpuscular HGB Conc 33 g/dL (31-36); Mean Corpuscular Hemoglobin 30 pg (27-31); Mean Corpuscular Volume 92 fL (80-94); Mean Platelet Volume 9.6 fL (7.4-10.4); Platelet Count 119 10^3/uL (150-450); Red Blood Count 4.16 10^6 /uL (4.18-5.48); Red Cell Distribution Width 14 % (10-15)
[2021-02-20 08:39] LABS: ABS Basophils 0.1 10^3/ul (0-0.2); ABS Eosinophils 0.1 10^3/ul (0-0.6); ABS Lymphocytes 3.3 10^3/ul (1.0-4.8); ABS Monocytes 1.9 10^3/ul (0-0.8); ABS Neutrophils 8.6 10^3/ul (1.5-7.7); Eosinophil % 0.5 %; Lymphocyte % 23.9 %; Nucleated Red Blood Cells % 0.1
== END 2021-02-20 07:03 | DRG 522 ==
LOC: ED 20:25 → SUATTDRO 23:59 → SSU 23:59
PROVIDERS: ADMIT Student in an Organized Health Care Education/Training Program; ATTEND Internal Medicine

== ENCOUNTER 2021-02-20 07:13 | Inpatient (IN) ==
[2021-02-20] MEDS ORDERED: Senna TAB 8.6 mg TAB PO PRN (12:10)
[2021-02-20] MEDS ORDERED: Magnesium Hydroxide LIQ 30 ML UDC PO PRN (12:10)
[2021-02-20] MEDS ORDERED: Dextrose 50% Syringe 50 ml 25 GM/50 ML SYRINGE IV PUSH PRN (12:18)
[2021-02-20] MEDS: Warfarin DAILY REMINDER **NOTE FOLLOW UP SCH (16:49)
[2021-02-20] MEDS: Enoxaparin 100 MG/ML SYR SUBCUT SCH (22:05)
[2021-02-20] MEDS: Insulin GLARGINE 100 un/ml 10 ml VIAL SUBCUT SCH (22:27)
[2021-02-20] MEDS: Polyethylene Glycol 3350 17 GM PACKET PO SCH (22:31)
[2021-02-21 07:22] LABS: ABS Basophils 0.1 10^3/ul (0-0.2); ABS Eosinophils 0.2 10^3/ul (0-0.6); ABS Lymphocytes 3.3 10^3/ul (1.0-4.8); ABS Monocytes 1.5 10^3/ul (0-0.8); ABS Neutrophils 7.5 10^3/ul (1.5-7.7); Eosinophil % 1.8 %; Hematocrit 32 % (42-52); Hemoglobin 11.1 g/dL (14.0-18.0); Lymphocyte % 26.2 %; Mean Corpuscular HGB Conc 35 g/dL (31-36); Mean Corpuscular Hemoglobin 30 pg (27-31); Mean Corpuscular Volume 87 fL (80-94); Mean Platelet Volume 9.3 fL (7.4-10.4); Platelet Count 144 10^3/uL (150-450); Red Blood Count 3.67 10^6 /uL (4.18-5.48); Red Cell Distribution Width 14 % (10-15); White Blood Count 12.6 10^3/uL (3.5-10.8)
[2021-02-21 07:34] LABS: Albumin 2.8 g/dL (3.2-5.2); Albumin/Globulin Ratio 1.2 (1-3); Calcium 7.9 mg/dL (8.6-10.3); EGFR African American 127.8 (>60); EGFR Non-African American 105.6 (>60); Globulin 2.4 g/dL (2-4); Potassium 3.6 mmol/L (3.5-5.0); Total Protein 5.2 g/dL (6.4-8.9)
[2021-02-21] MEDS: Enoxaparin 100 MG/ML SYR SUBCUT SCH (08:34)
[2021-02-21] MEDS: Polyethylene Glycol 3350 17 GM PACKET PO SCH ×2 (08:34→20:22)
[2021-02-21] MEDS: Aspirin EC 81 mg TAB.EC (enteric coated) PO SCH (08:36)
[2021-02-21 13:15] LABS: INR 2.15 (0.86-1.15)
[2021-02-21] MEDS: Warfarin DAILY REMINDER **NOTE FOLLOW UP SCH (17:25)
[2021-02-21] MEDS: Insulin GLARGINE 100 un/ml 10 ml VIAL SUBCUT SCH (20:24)
[2021-02-22 05:01] LABS: INR 2.08 (0.86-1.15)
[2021-02-22] MEDS: Aspirin EC 81 mg TAB.EC (enteric coated) PO SCH (08:08)
[2021-02-22] MEDS: Polyethylene Glycol 3350 17 GM PACKET PO SCH ×2 (08:09→21:15)
[2021-02-22] MEDS: Warfarin DAILY REMINDER **NOTE FOLLOW UP SCH (21:17)
[2021-02-22] MEDS: Insulin GLARGINE 100 un/ml 10 ml VIAL SUBCUT SCH (21:25)
[2021-02-23] MEDS: Aspirin EC 81 mg TAB.EC (enteric coated) PO SCH (09:07)
[2021-02-23] MEDS: Polyethylene Glycol 3350 17 GM PACKET PO SCH ×2 (09:09→21:51)
[2021-02-23] MEDS: Warfarin DAILY REMINDER **NOTE FOLLOW UP SCH (17:15)
[2021-02-23] MEDS: Insulin GLARGINE 100 un/ml 10 ml VIAL SUBCUT SCH (22:20)
[2021-02-24 06:01] LABS: ABS Basophils 0.1 10^3/ul (0-0.2); ABS Eosinophils 0.4 10^3/ul (0-0.6); ABS Lymphocytes 3.1 10^3/ul (1.0-4.8); ABS Monocytes 1.1 10^3/ul (0-0.8); ABS Neutrophils 6.3 10^3/ul (1.5-7.7); Hematocrit 30 % (42-52); Hemoglobin 10.1 g/dL (14.0-18.0); Mean Corpuscular HGB Conc 34 g/dL (31-36); Mean Corpuscular Hemoglobin 30 pg (27-31); Mean Corpuscular Volume 88 fL (80-94); Mean Platelet Volume 8.1 fL (7.4-10.4); Nucleated Red Blood Cells % 0.1; Platelet Count 293 10^3/uL (150-450); Red Blood Count 3.34 10^6 /uL (4.18-5.48); Red Cell Distribution Width 14 % (10-15); White Blood Count 11.1 10^3/uL (3.5-10.8)
[2021-02-24 06:05] LABS: INR 2.92 (0.86-1.15)
[2021-02-24 06:18] LABS: Calcium 8.1 mg/dL (8.6-10.3); EGFR African American 109.9 (>60); EGFR Non-African American 90.9 (>60); Potassium 3.6 mmol/L (3.5-5.0)
[2021-02-24] MEDS: Aspirin EC 81 mg TAB.EC (enteric coated) PO SCH (09:28)
[2021-02-24] MEDS: Polyethylene Glycol 3350 17 GM PACKET PO SCH ×2 (09:28→21:51)
[2021-02-24] MEDS: Warfarin DAILY REMINDER **NOTE FOLLOW UP SCH (18:12)
[2021-02-24] MEDS: Insulin GLARGINE 100 un/ml 10 ml VIAL SUBCUT SCH (21:51)
[2021-02-25] MEDS: Aspirin EC 81 mg TAB.EC (enteric coated) PO SCH (08:13)
[2021-02-25] MEDS: Polyethylene Glycol 3350 17 GM PACKET PO SCH ×2 (08:14→20:33)
[2021-02-25] MEDS: Warfarin DAILY REMINDER **NOTE FOLLOW UP SCH (17:27)
[2021-02-25] MEDS: Insulin GLARGINE 100 un/ml 10 ml VIAL SUBCUT SCH (20:34)
[2021-02-26 05:43] LABS: ABS Basophils 0.1 10^3/ul (0-0.2); ABS Eosinophils 0.5 10^3/ul (0-0.6); ABS Lymphocytes 2.9 10^3/ul (1.0-4.8); ABS Monocytes 1.1 10^3/ul (0-0.8); ABS Neutrophils 7.2 10^3/ul (1.5-7.7); Eosinophil % 4.2 %; Hematocrit 31 % (42-52); Hemoglobin 10.5 g/dL (14.0-18.0); Lymphocyte % 24.4 %; Mean Corpuscular HGB Conc 34 g/dL (31-36); Mean Corpuscular Hemoglobin 30 pg (27-31); Mean Corpuscular Volume 89 fL (80-94); Platelet Count 428 10^3/uL (150-450); Red Blood Count 3.47 10^6 /uL (4.18-5.48); Red Cell Distribution Width 15 % (10-15); White Blood Count 11.7 10^3/uL (3.5-10.8)
[2021-02-26 05:58] LABS: INR 2.98 (0.86-1.15)
[2021-02-26] MEDS: Polyethylene Glycol 3350 17 GM PACKET PO SCH ×2 (08:27→23:27)
[2021-02-26] MEDS: Aspirin EC 81 mg TAB.EC (enteric coated) PO SCH (08:27)
[2021-02-26] MEDS: Warfarin DAILY REMINDER **NOTE FOLLOW UP SCH (17:25)
[2021-02-26] MEDS ORDERED: Dextrose 50% Syringe 50 ml 25 GM/50 ML SYRINGE IV PUSH PRN (20:39)
[2021-02-26] MEDS: Insulin GLARGINE 100 un/ml 10 ml VIAL SUBCUT SCH (21:33)
[2021-02-27] MEDS: Aspirin EC 81 mg TAB.EC (enteric coated) PO SCH (08:43)
[2021-02-27] MEDS: Polyethylene Glycol 3350 17 GM PACKET PO SCH ×2 (08:46→21:56)
[2021-02-27] MEDS: Warfarin DAILY REMINDER **NOTE FOLLOW UP SCH (17:09)
[2021-02-27] MEDS ORDERED: Insulin GLARGINE 100 un/ml 10 ml VIAL SUBCUT SCH (21:00)
[2021-02-28 04:52] LABS: ABS Basophils 0.1 10^3/ul (0-0.2); ABS Eosinophils 0.3 10^3/ul (0-0.6); ABS Lymphocytes 3.5 10^3/ul (1.0-4.8); ABS Monocytes 1.1 10^3/ul (0-0.8); ABS Neutrophils 5.6 10^3/ul (1.5-7.7); Eosinophil % 2.6 %; Hematocrit 31 % (42-52); Hemoglobin 10.6 g/dL (14.0-18.0); Lymphocyte % 33.2 %; Mean Corpuscular HGB Conc 34 g/dL (31-36); Mean Corpuscular Hemoglobin 31 pg (27-31); Mean Corpuscular Volume 89 fL (80-94); Mean Platelet Volume 7.7 fL (7.4-10.4); Platelet Count 505 10^3/uL (150-450); Red Blood Count 3.48 10^6 /uL (4.18-5.48); Red Cell Distribution Width 15 % (10-15); White Blood Count 10.6 10^3/uL (3.5-10.8)
[2021-02-28 04:57] LABS: INR 4.2 (0.86-1.15)
[2021-02-28 05:06] LABS: Albumin 2.9 g/dL (3.2-5.2); Albumin/Globulin Ratio 1.3 (1-3); Calcium 8.4 mg/dL (8.6-10.3); EGFR African American 102.7 (>60); EGFR Non-African American 84.9 (>60); Globulin 2.3 g/dL (2-4); Potassium 3.8 mmol/L (3.5-5.0); Total Bilirubin 1.7 mg/dL (0.2-1.0); Total Protein 5.2 g/dL (6.4-8.9)
[2021-02-28] MEDS: Aspirin EC 81 mg TAB.EC (enteric coated) PO SCH (08:39)
[2021-02-28] MEDS: Polyethylene Glycol 3350 17 GM PACKET PO SCH ×2 (08:40→20:47)
[2021-02-28] MEDS: Warfarin DAILY REMINDER **NOTE FOLLOW UP SCH (17:01)
[2021-03-01 07:00] LABS: INR 3.21 (0.86-1.15)
[2021-03-01] MEDS: Polyethylene Glycol 3350 17 GM PACKET PO SCH ×2 (09:04→21:13)
[2021-03-01] MEDS: Aspirin EC 81 mg TAB.EC (enteric coated) PO SCH (09:05)
[2021-03-01] MEDS: Warfarin DAILY REMINDER **NOTE FOLLOW UP SCH (17:18)
[2021-03-02 07:22] LABS: INR 2.38 (0.86-1.15)
[2021-03-02] MEDS: Polyethylene Glycol 3350 17 GM PACKET PO SCH ×2 (08:16→21:30)
[2021-03-02] MEDS: Aspirin EC 81 mg TAB.EC (enteric coated) PO SCH (08:17)
[2021-03-02] MEDS: Warfarin DAILY REMINDER **NOTE FOLLOW UP SCH (16:57)
[2021-03-03 06:48] LABS: INR 2.43 (0.86-1.15)
[2021-03-03 06:51] LABS: Albumin 3.1 g/dL (3.2-5.2); Albumin/Globulin Ratio 1.2 (1-3); Calcium 8.6 mg/dL (8.6-10.3); EGFR African American 89.5 (>60); Globulin 2.5 g/dL (2-4); Potassium 3.8 mmol/L (3.5-5.0); Total Bilirubin 1.7 mg/dL (0.2-1.0); Total Protein 5.6 g/dL (6.4-8.9)
[2021-03-03] MEDS: Aspirin EC 81 mg TAB.EC (enteric coated) PO SCH (09:30)
[2021-03-03] MEDS: Polyethylene Glycol 3350 17 GM PACKET PO SCH ×2 (09:34→21:04)
[2021-03-03] MEDS: Warfarin DAILY REMINDER **NOTE FOLLOW UP SCH (17:23)
[2021-03-04 06:21] VITALS: BP 118/68
[2021-03-04] MEDS: Aspirin EC 81 mg TAB.EC (enteric coated) PO SCH (10:18)
[2021-03-04] MEDS: Polyethylene Glycol 3350 17 GM PACKET PO SCH (10:19)
== END 2021-03-04 12:15 | disposition home health service (06) | DRG 560 ==
LOC: PMRU 09:21 → MED 02-21 16:00 → PMRU 02-28 09:58
PROVIDERS: ADMIT Physical Medicine & Rehabilitation; ATTEND Physical Medicine & Rehabilitation

== ENCOUNTER 2021-12-29 10:39 | Inpatient (IN) ==
[~2021-12-29 10:39] MED LIST changes: -Acetaminophen TAB* 325 MG PO PRN; +Buffered Lidocaine 1% SYRIN 1 ml INTRADERM ONE; +HYDROmorphone 1 MG/1 ML SYRINGE IV PRN; -Heparin(*) 1000 UNIT/ML 10 ML VIAL CATH LAB IV ONE; -Iohexol 350 (CONTRAST) 200 ML MDV IV ONE; +Lactated Ringers 1000 ml BAG 1,000 ML IV SCH; -Lidocaine 1% INJ* 10 MG/ML 30 ML SDV ONE; -Midazolam* 1 MG/ML 5 ML VIAL (5 MG) ONE; -NS 0.9% 1000 ML** 1,000 ML IV SCH; +Naloxone 0.4 mg VIAL 0.4 mg/ml 1 ml VIAL IV PRN; +Prochlorperazine 5 mg/ml 2 ml VIAL (10 mg) IV PRN; -VERAPAMIL 2.5 MG/ML 2 ML VIAL ** 5 mg/2 ml ONE; -fentaNYL* 50 MCG/ML 2 ML VIAL (100 MCG VIAL) ONE; -nitroGLYCERIN DRIP* 25,000 MCG/250 ML BTL ONE
[2021-12-29] MEDS ORDERED: Heparin 5000 UNITS/ML 1 mL VIAL ONE (10:59)
[2021-12-29] MEDS ORDERED: Naloxone 0.4 mg VIAL 0.4 mg/ml 1 ml VIAL IV PRN (11:11)
[2021-12-29] MEDS ORDERED: Haloperidol 5 mg/ml SDV IV/IM 5 MG/ML AMP IV SLOW PU PRN (11:11)
[2021-12-29] MEDS ORDERED: fentaNYL 100 mcg/2 ml 50 MCG/ML VIAL IV PRN (11:11)
[2021-12-29] MEDS ORDERED: Lidocaine 2% PF 5 ML VIAL ONE ×2 (11:17→11:44)
[2021-12-29] MEDS ORDERED: fentaNYL 100 mcg/2 ml 50 MCG/ML VIAL ONE (11:18)
[2021-12-29] MEDS ORDERED: Rocuronium 50 mg VIAL 10 mg/ml 5 ml VIAL (50 mg) ONE (11:18)
[2021-12-29] MEDS ORDERED: Dexamethasone IV 4 MG/ML VIAL 1 ml VIAL ONE (11:18)
[2021-12-29] MEDS ORDERED: Ondansetron 4 mg VIAL 2 MG/ML 2 ml VIAL ONE (11:18)
[2021-12-29] MEDS ORDERED: Lidocaine 4 MG/ML IV PREMIX 200 MG/50 ML BAG IV SCH (12:00)
[2021-12-29] MEDS ORDERED: Phenylephrine 40 mcg/mL 10mL (400mcg) SYRINGE ONE (12:36)
[2021-12-29] MEDS ORDERED: Ertapenem 1 GM in NS 0.9% 50 ML IVPB ONE (13:00)
[2021-12-29] MEDS ORDERED: Acetaminophen IV 1 GM/100ML 100 ML IV ONE (13:08)
[2021-12-29] MEDS ORDERED: HYDROmorphone 0.5 MG/0.5 ML SYRINGE ONE (13:17)
[2021-12-29] MEDS ORDERED: Lidocaine 4 MG/ML IV PREMIX 2,000 MG/500 ML BAG IV ONE (16:56)
[2021-12-29] MEDS ORDERED: HYDROmorphone 1 MG/1 ML SYRINGE IV SLOW PU PRN (17:16)
[2021-12-29] MEDS ORDERED: HYDROmorphone 0.5 MG/0.5 ML SYRINGE IV SLOW PU PRN (17:16)
[2021-12-29] MEDS ORDERED: Dextrose 50% Syringe 50 ml 25 GM/50 ML SYRINGE IV PUSH PRN (17:17)
[2021-12-29] MEDS ORDERED: Prochlorperazine 5 mg/ml 2 ml VIAL (10 mg) ONE (17:59)
[2021-12-29] MEDS ORDERED: D5W 1/2 NS 40 Meq KCL 1000 ml 1,000 ML IV SCH (19:00)
[2021-12-29] MEDS: Acetaminophen IV 1 GM/100ML 100 ML IV SCH (22:25)
[2021-12-29] MEDS: Famotidine IV 10 MG/ML 2 ml VIAL (20 mg) IV SLOW PU SCH (22:33)
[2021-12-30] MEDS: Acetaminophen IV 1 GM/100ML 100 ML IV SCH ×4 (04:42→22:27)
[2021-12-30 04:47] LABS: ABS Basophils 0.1 10^3/ul (0-0.2); ABS Lymphocytes 1.1 10^3/ul (1.0-4.8); ABS Neutrophils 14.1 10^3/ul (1.5-7.7); Hematocrit 42 % (42-52); Hemoglobin 13.8 g/dL (14.0-18.0); Lymphocyte % 6.8 %; Mean Corpuscular HGB Conc 33 g/dL (31-36); Mean Corpuscular Hemoglobin 29 pg (27-31); Mean Corpuscular Volume 89 fL (80-94); Platelet Count 194 10^3/uL (150-450); Red Blood Count 4.76 10^6 /uL (4.18-5.48); Red Cell Distribution Width 13 % (10-15); White Blood Count 16.3 10^3/uL (3.5-10.8)
[2021-12-30 05:18] LABS: Calcium 8.7 mg/dL (8.6-10.3); eGFR CKD-EPI 76.6 (>60)
[2021-12-30] MEDS ORDERED: Scopolamine 1 mg/72hr PATCH TRANSDERM ONE (06:00)
[2021-12-30] MEDS ORDERED: Lactated Ringers 1000 ml BAG 1,000 ML IV SCH (06:00)
[2021-12-30] MEDS ORDERED: Buffered Lidocaine 1% SYRIN 1 ml INTRADERM ONE (06:00)
[2021-12-30] MEDS: Famotidine IV 10 MG/ML 2 ml VIAL (20 mg) IV SLOW PU SCH ×2 (08:42→20:59)
[2021-12-30] MEDS: Heparin 5000 UNITS/ML 1 mL VIAL SUBCUT SCH ×2 (14:05→20:59)
[2021-12-31] MEDS: Acetaminophen IV 1 GM/100ML 100 ML IV SCH ×2 (03:45→08:14)
[2021-12-31] MEDS: Heparin 5000 UNITS/ML 1 mL VIAL SUBCUT SCH ×3 (06:09→21:35)
[2021-12-31 06:20] LABS: ABS Basophils 0.1 10^3/ul (0-0.2); ABS Lymphocytes 3.2 10^3/ul (1.0-4.8); ABS Monocytes 0.8 10^3/ul (0-0.8); ABS Neutrophils 7.4 10^3/ul (1.5-7.7); Eosinophil % 0.3 %; Hematocrit 42 % (42-52); Hemoglobin 14.2 g/dL (14.0-18.0); Lymphocyte % 27.9 %; Mean Corpuscular HGB Conc 34 g/dL (31-36); Mean Corpuscular Hemoglobin 30 pg (27-31); Mean Corpuscular Volume 89 fL (80-94); Mean Platelet Volume 8.2 fL (7.4-10.4); Platelet Count 194 10^3/uL (150-450); Red Blood Count 4.69 10^6 /uL (4.18-5.48); Red Cell Distribution Width 13 % (10-15); White Blood Count 11.5 10^3/uL (3.5-10.8)
[2021-12-31 06:51] LABS: Calcium 8.9 mg/dL (8.6-10.3); Potassium 4.2 mmol/L (3.5-5.0); eGFR CKD-EPI 71.4 (>60)
[2021-12-31] MEDS: Famotidine IV 10 MG/ML 2 ml VIAL (20 mg) IV SLOW PU SCH ×2 (08:56→21:35)
[2022-01-01] MEDS: Heparin 5000 UNITS/ML 1 mL VIAL SUBCUT SCH (05:40)
[2022-01-01 06:04] LABS: ABS Basophils 0.1 10^3/ul (0-0.2); ABS Eosinophils 0.1 10^3/ul (0-0.6); ABS Lymphocytes 2.5 10^3/ul (1.0-4.8); ABS Monocytes 1.1 10^3/ul (0-0.8); ABS Neutrophils 8.9 10^3/ul (1.5-7.7); Eosinophil % 0.5 %; Hematocrit 47 % (42-52); Hemoglobin 15.6 g/dL (14.0-18.0); Lymphocyte % 19.7 %; Mean Corpuscular HGB Conc 33 g/dL (31-36); Mean Corpuscular Hemoglobin 29 pg (27-31); Mean Corpuscular Volume 89 fL (80-94); Mean Platelet Volume 8.1 fL (7.4-10.4); Nucleated Red Blood Cells % 0.1; Platelet Count 231 10^3/uL (150-450); Red Blood Count 5.31 10^6 /uL (4.18-5.48); Red Cell Distribution Width 14 % (10-15); White Blood Count 12.6 10^3/uL (3.5-10.8)
[2022-01-01 06:34] LABS: Calcium 9.8 mg/dL (8.6-10.3); Potassium 4.5 mmol/L (3.5-5.0); eGFR CKD-EPI 78.4 (>60)
[2022-01-01] MEDS: Enoxaparin 100 MG/ML SYR SUBCUT SCH ×2 (08:43→20:44)
[2022-01-01] MEDS: Famotidine IV 10 MG/ML 2 ml VIAL (20 mg) IV SLOW PU SCH ×2 (08:56→20:44)
[2022-01-01 09:18] LABS: INR 1.19 (0.86-1.15)
[2022-01-01] MEDS ORDERED: Metoprolol Tartrate 5 mg VIAL 5 ml VIAL (1 mg/ml) IV ONE ×3 (10:00→22:53)
[2022-01-01] MEDS ORDERED: Warfarin per PHARMACY **NOTE FOLLOW UP SCH (12:00)
[2022-01-01] MEDS ORDERED: NS 0.9% 500 ml BAG 500 ML IV ONE ×2 (13:17→14:34)
[2022-01-01] MEDS ORDERED: NS 0.9% 1000 ml BAG 1,000 ML IV SCH (15:30)
[2022-01-01] MEDS ORDERED: NS 0.9% 1000 ml BAG 1,000 ML IV ONE (15:36)
[2022-01-01] MEDS: Ondansetron 4 mg VIAL 2 MG/ML 2 ml VIAL IV PRN (16:30)
[2022-01-01] MEDS ORDERED: Iohexol 350 (CONTRAST) 500 ML MDV IV ONE (18:38)
[2022-01-01] MEDS: NS 0.9% 1000 ml BAG 1,000 ML IV SCH (20:38)
[2022-01-02 00:40] LABS: High Sensitivity Troponin 1 Hr 8 pg/mL (<20)
[2022-01-02] MEDS ORDERED: Digoxin IV 0.5 MG/2 ML AMP (0.25 MG/ML) IV SLOW PU ONE (02:15)
[2022-01-02] MEDS: NS 0.9% 1000 ml BAG 1,000 ML IV SCH (05:31)
[2022-01-02 06:37] LABS: ABS Basophils 0.1 10^3/ul (0-0.2); ABS Eosinophils 0.1 10^3/ul (0-0.6); ABS Lymphocytes 2.1 10^3/ul (1.0-4.8); ABS Neutrophils 12.9 10^3/ul (1.5-7.7); Eosinophil % 0.4 %; Hematocrit 46 % (42-52); Hemoglobin 15.4 g/dL (14.0-18.0); Lymphocyte % 13.1 %; Mean Corpuscular HGB Conc 34 g/dL (31-36); Mean Corpuscular Hemoglobin 30 pg (27-31); Mean Corpuscular Volume 90 fL (80-94); Mean Platelet Volume 8.1 fL (7.4-10.4); Platelet Count 241 10^3/uL (150-450); Red Blood Count 5.09 10^6 /uL (4.18-5.48); Red Cell Distribution Width 14 % (10-15); White Blood Count 16.1 10^3/uL (3.5-10.8)
[2022-01-02 06:43] LABS: INR 1.27 (0.86-1.15)
[2022-01-02 07:22] LABS: Calcium 9.4 mg/dL (8.6-10.3); Potassium 4.5 mmol/L (3.5-5.0)
[2022-01-02] MEDS: Enoxaparin 100 MG/ML SYR SUBCUT SCH (07:39)
[2022-01-02] MEDS: Famotidine IV 10 MG/ML 2 ml VIAL (20 mg) IV SLOW PU SCH ×2 (08:59→20:49)
[2022-01-02] MEDS ORDERED: NS 0.9% 500 ml BAG 500 ML IV ONE (11:08)
[2022-01-02] MEDS: Ondansetron 4 mg VIAL 2 MG/ML 2 ml VIAL IV PRN (11:29)
[2022-01-02] MEDS ORDERED: Magnesium Sulfate IV 1GM/100ML 1 GM/100 ML BAG IV ONE (11:30)
[2022-01-02] MEDS ORDERED: Piperacillin/Tazobac ADVAN 3.375 GM in NS 0.9% 100 ml BAG 100 ML IV ONE (15:30)
[2022-01-02 15:53] LABS: ABS Lymphocytes 1.8 10^3/ul (1.0-4.8); ABS Monocytes 0.9 10^3/ul (0-0.8); ABS Neutrophils 13.7 10^3/ul (1.5-7.7); Eosinophil % 0.1 %; Hematocrit 41 % (42-52); Hemoglobin 13.7 g/dL (14.0-18.0); Mean Corpuscular HGB Conc 33 g/dL (31-36); Mean Corpuscular Hemoglobin 30 pg (27-31); Mean Corpuscular Volume 90 fL (80-94); Mean Platelet Volume 8.7 fL (7.4-10.4); Platelet Count 252 10^3/uL (150-450); Red Blood Count 4.57 10^6 /uL (4.18-5.48); Red Cell Distribution Width 14 % (10-15); White Blood Count 16.5 10^3/uL (3.5-10.8)
[2022-01-02] MEDS ORDERED: Zosyn per Pharmacy NOTE FOLLOW UP SCH (16:00)
[2022-01-02 16:19] LABS: Albumin 3.2 g/dL (3.2-5.2); Albumin/Globulin Ratio 1.5 (1-3); Calcium 8.8 mg/dL (8.6-10.3); Globulin 2.2 g/dL (2-4); Potassium 4.3 mmol/L (3.5-5.0); Total Bilirubin 0.9 mg/dL (0.2-1.0); Total Protein 5.4 g/dL (6.4-8.9); eGFR CKD-EPI 91.1 (>60)
[2022-01-02 17:00] LABS: High Sensitivity Troponin 1 Hr 11 pg/mL (<20)
[2022-01-02] MEDS ORDERED: Warfarin DAILY REMINDER **NOTE FOLLOW UP SCH (17:00)
[2022-01-02] MEDS ORDERED: Iodixanol (CONTRAST) 320 MG/ML 100 ML SDV IV ONE (17:31)
[2022-01-02] MEDS ORDERED: Prochlorperazine 5 mg/ml 2 ml VIAL (10 mg) IV PRN (17:48)
[2022-01-02 17:49] LABS: C Reactive Protein 20.4 mg/L (<8.01)
[2022-01-02 20:35] LABS: ABS Lymphocytes 1.9 10^3/ul (1.0-4.8); ABS Neutrophils 15.9 10^3/ul (1.5-7.7); Hematocrit 40 % (42-52); Hemoglobin 12.9 g/dL (14.0-18.0); Lymphocyte % 9.9 %; Mean Corpuscular HGB Conc 32 g/dL (31-36); Mean Corpuscular Hemoglobin 29 pg (27-31); Mean Corpuscular Volume 90 fL (80-94); Mean Platelet Volume 8.4 fL (7.4-10.4); Platelet Count 274 10^3/uL (150-450); Red Blood Count 4.41 10^6 /uL (4.18-5.48); Red Cell Distribution Width 14 % (10-15); White Blood Count 18.9 10^3/uL (3.5-10.8)
[2022-01-02] MEDS: ZOSYN 3.375 GM Q8H per EXTENDED INFUSION IV SCH (20:50)
[2022-01-02] MEDS: Metoprolol Tartrate 5 mg VIAL 5 ml VIAL (1 mg/ml) IV SCH (20:50)
[2022-01-02] MEDS ORDERED: Metoprolol Tartrate 5 mg VIAL 5 ml VIAL (1 mg/ml) IV ONE (23:50)
[2022-01-03 03:26] LABS: Urine Appearance Clear; Urine Bilirubin Negative (Negative); Urine Blood Negative (Negative); Urine Color Yellow; Urine Glucose 3+(>=500 mg/dL) (Negative); Urine Ketones 1+ (Negative); Urine Nitrite Negative (Negative); Urine Protein Negative (Negative); Urine Urobilinogen Negative (Negative)
[2022-01-03 03:57] LABS: Urine Specific Gravity > 1.060 (1.002-1.030)
[2022-01-03] MEDS: Metoprolol Tartrate 5 mg VIAL 5 ml VIAL (1 mg/ml) IV SCH ×3 (04:07→14:36)
[2022-01-03] MEDS: ZOSYN 3.375 GM Q8H per EXTENDED INFUSION IV SCH ×3 (04:11→20:33)
[2022-01-03 07:08] LABS: Potassium 4.6 mmol/L (3.5-5.0); eGFR CKD-EPI 80.4 (>60)
[2022-01-03 07:52] LABS: Hematocrit 34 % (42-52); Hemoglobin 11.3 g/dL (14.0-18.0); Mean Corpuscular HGB Conc 33 g/dL (31-36); Mean Corpuscular Hemoglobin 30 pg (27-31); Mean Corpuscular Volume 90 fL (80-94); Mean Platelet Volume 8.3 fL (7.4-10.4); Platelet Count 244 10^3/uL (150-450); Red Blood Count 3.82 10^6 /uL (4.18-5.48); Red Cell Distribution Width 14 % (10-15)
[2022-01-03] MEDS: Enoxaparin 40 MG/0.4 ML SYR SUBCUT SCH (10:28)
[2022-01-03] MEDS: Famotidine IV 10 MG/ML 2 ml VIAL (20 mg) IV SLOW PU SCH ×2 (10:29→20:33)
[2022-01-03 12:40] LABS: ABS Lymphocytes 2.8 10^3/ul (1.0-4.8); ABS Monocytes 1.7 10^3/ul (0-0.8); ABS Neutrophils 10.5 10^3/ul (1.5-7.7); Eosinophil % 0.1 %; Lymphocyte % 18.4 %
[2022-01-03] MEDS ORDERED: NS 0.9% 500 ml BAG 500 ML IV ONE ×2 (14:59→18:59)
[2022-01-03] MEDS: NS 0.9% 1000 ml BAG 1,000 ML IV SCH ×2 (15:48→20:33)
[2022-01-04] MEDS ORDERED: NS 0.9% 500 ml BAG 500 ML IV ONE (00:41)
[2022-01-04] MEDS: ZOSYN 3.375 GM Q8H per EXTENDED INFUSION IV SCH (04:10)
[2022-01-04 05:33] LABS: ABS Basophils 0.1 10^3/ul (0-0.2); ABS Eosinophils 0.3 10^3/ul (0-0.6); ABS Lymphocytes 3.2 10^3/ul (1.0-4.8); ABS Monocytes 1.2 10^3/ul (0-0.8); ABS Neutrophils 5.5 10^3/ul (1.5-7.7); Eosinophil % 3.3 %; Hematocrit 28 % (42-52); Hemoglobin 9.3 g/dL (14.0-18.0); Lymphocyte % 30.8 %; Mean Corpuscular HGB Conc 33 g/dL (31-36); Mean Corpuscular Hemoglobin 30 pg (27-31); Mean Corpuscular Volume 90 fL (80-94); Mean Platelet Volume 7.9 fL (7.4-10.4); Nucleated Red Blood Cells % 0.1; Platelet Count 205 10^3/uL (150-450); Red Blood Count 3.12 10^6 /uL (4.18-5.48); Red Cell Distribution Width 14 % (10-15); White Blood Count 10.3 10^3/uL (3.5-10.8)
[2022-01-04 06:17] LABS: Calcium 7.9 mg/dL (8.6-10.3); Potassium 3.5 mmol/L (3.5-5.0); eGFR CKD-EPI 89.7 (>60)
[2022-01-04] MEDS: Lactated Ringers 1000 ml BAG 1,000 ML IV SCH ×2 (07:07→18:13)
[2022-01-04] MEDS: Famotidine IV 10 MG/ML 2 ml VIAL (20 mg) IV SLOW PU SCH ×2 (08:52→20:22)
[2022-01-04] MEDS: Enoxaparin 40 MG/0.4 ML SYR SUBCUT SCH (08:53)
[2022-01-05] MEDS: Lactated Ringers 1000 ml BAG 1,000 ML IV SCH ×2 (02:31→12:33)
[2022-01-05] MEDS: Famotidine IV 10 MG/ML 2 ml VIAL (20 mg) IV SLOW PU SCH ×2 (09:27→20:48)
[2022-01-05] MEDS: Enoxaparin 40 MG/0.4 ML SYR SUBCUT SCH (09:46)
[2022-01-05 10:05] LABS: ABS Eosinophils 0.2 10^3/ul (0-0.6); ABS Lymphocytes 1.9 10^3/ul (1.0-4.8); ABS Monocytes 0.8 10^3/ul (0-0.8); ABS Neutrophils 6.3 10^3/ul (1.5-7.7); Eosinophil % 2.1 %; Hematocrit 29 % (42-52); Hemoglobin 9.4 g/dL (14.0-18.0); Lymphocyte % 20.1 %; Mean Corpuscular HGB Conc 33 g/dL (31-36); Mean Corpuscular Hemoglobin 30 pg (27-31); Mean Corpuscular Volume 90 fL (80-94); Nucleated Red Blood Cells % 0.2; Platelet Count 245 10^3/uL (150-450); Red Blood Count 3.16 10^6 /uL (4.18-5.48); Red Cell Distribution Width 15 % (10-15); White Blood Count 9.2 10^3/uL (3.5-10.8)
[2022-01-05 10:37] LABS: Calcium 8.1 mg/dL (8.6-10.3); Magnesium 1.8 mg/dL (1.9-2.7); Potassium 3.4 mmol/L (3.5-5.0); eGFR CKD-EPI 91.1 (>60)
[2022-01-05] MEDS ORDERED: KCL 20 MEQ/100 ML IVPREMIX 20 MEQ/100 ML BAG IV ONE ×3 (10:49→20:38)
[2022-01-05] MEDS ORDERED: Magnesium Sulfate 2 gm BAG 2 GM/50 ML BAG IVPB ONE (10:49)
[2022-01-05] MEDS ORDERED: Warfarin per PHARMACY **NOTE FOLLOW UP SCH (11:00)
[2022-01-05] MEDS: Enoxaparin 100 MG/ML SYR SUBCUT SCH ×2 (12:32→22:23)
[2022-01-05] MEDS: Warfarin DAILY REMINDER **NOTE FOLLOW UP SCH (18:07)
[2022-01-05] MEDS ORDERED: Potassium Chlor 20 meq TAB.ER PO ONE (20:37)
[2022-01-05] MEDS ORDERED: Magnesium Sulfate IV 1GM/100ML 1 GM/100 ML BAG IV ONE (20:37)
[2022-01-06] MEDS: Lactated Ringers 1000 ml BAG 1,000 ML IV SCH (00:41)
[2022-01-06 05:22] LABS: ABS Eosinophils 0.3 10^3/ul (0-0.6); ABS Lymphocytes 3.3 10^3/ul (1.0-4.8); ABS Monocytes 0.9 10^3/ul (0-0.8); ABS Neutrophils 4.2 10^3/ul (1.5-7.7); Hematocrit 27 % (42-52); Hemoglobin 8.9 g/dL (14.0-18.0); Lymphocyte % 37.5 %; Mean Corpuscular HGB Conc 33 g/dL (31-36); Mean Corpuscular Hemoglobin 30 pg (27-31); Mean Corpuscular Volume 91 fL (80-94); Mean Platelet Volume 8.6 fL (7.4-10.4); Nucleated Red Blood Cells % 0.1; Platelet Count 243 10^3/uL (150-450); Red Blood Count 2.94 10^6 /uL (4.18-5.48); Red Cell Distribution Width 14 % (10-15); White Blood Count 8.7 10^3/uL (3.5-10.8)
[2022-01-06 05:30] LABS: INR 1.33 (0.86-1.15)
[2022-01-06 05:33] LABS: Calcium 7.7 mg/dL (8.6-10.3); Magnesium 2.1 mg/dL (1.9-2.7); Potassium 3.3 mmol/L (3.5-5.0); eGFR CKD-EPI 95.4 (>60)
[2022-01-06] MEDS: Famotidine IV 10 MG/ML 2 ml VIAL (20 mg) IV SLOW PU SCH ×2 (09:32→20:00)
[2022-01-06] MEDS: KCL 20 MEQ/100 ML IVPREMIX 20 MEQ/100 ML BAG IV SCH ×3 (09:33→14:20)
[2022-01-06] MEDS: Enoxaparin 100 MG/ML SYR SUBCUT SCH (09:46)
[2022-01-06] MEDS: Warfarin DAILY REMINDER **NOTE FOLLOW UP SCH (17:13)
[2022-01-07] MEDS: Enoxaparin 100 MG/ML SYR SUBCUT SCH ×2 (01:09→11:50)
[2022-01-07 05:32] LABS: INR 1.41 (0.86-1.15)
[2022-01-07 08:17] LABS: ABS Basophils 0.1 10^3/ul (0-0.2); ABS Eosinophils 0.3 10^3/ul (0-0.6); ABS Lymphocytes 2.5 10^3/ul (1.0-4.8); ABS Monocytes 0.8 10^3/ul (0-0.8); ABS Neutrophils 5.2 10^3/ul (1.5-7.7); Eosinophil % 3.6 %; Hematocrit 29 % (42-52); Hemoglobin 9.4 g/dL (14.0-18.0); Lymphocyte % 28.1 %; Mean Corpuscular HGB Conc 33 g/dL (31-36); Mean Corpuscular Hemoglobin 30 pg (27-31); Mean Corpuscular Volume 91 fL (80-94); Mean Platelet Volume 8.2 fL (7.4-10.4); Nucleated Red Blood Cells % 0.4; Platelet Count 294 10^3/uL (150-450); Red Blood Count 3.15 10^6 /uL (4.18-5.48); Red Cell Distribution Width 15 % (10-15); White Blood Count 8.9 10^3/uL (3.5-10.8)
[2022-01-07] MEDS: Famotidine IV 10 MG/ML 2 ml VIAL (20 mg) IV SLOW PU SCH ×2 (08:36→20:23)
[2022-01-07 08:49] LABS: Calcium 8.4 mg/dL (8.6-10.3); Potassium 4.3 mmol/L (3.5-5.0); eGFR CKD-EPI 88.1 (>60)
[2022-01-07] MEDS: Warfarin DAILY REMINDER **NOTE FOLLOW UP SCH (17:16)
[2022-01-08] MEDS: Enoxaparin 100 MG/ML SYR SUBCUT SCH (00:01)
[2022-01-08 06:25] LABS: INR 1.54 (0.86-1.15)
[2022-01-08 08:01] VITALS: BP 145/76
[2022-01-08] MEDS: Famotidine IV 10 MG/ML 2 ml VIAL (20 mg) IV SLOW PU SCH (08:02)
== END 2022-01-08 10:50 | disposition home or self-care (01) | DRG 330 ==
LOC: OR 10:39 → SSU 18:17 → MEDTELE 01-02 02:27
PROVIDERS: ADMIT Surgery; ATTEND Surgery